=== PATIENT | female | born 1965 | race Hispanic/Latino ===

== ENCOUNTER 2024-07-04 12:20 | Emergency (ER) | payer BC ==
[~2024-07-04] VITALS: Ht 154.9 cm; Wt 84.4 kg
[2024-07-04] MEDS ORDERED: METFORMIN HCL1000 MG (13:07)
[2024-07-04] MEDS ORDERED: ATORVASTATIN CA20 MG PO (13:07)
[2024-07-04] MEDS: LACTATED RINGER'S 1,000 ML INJ ONE (13:15)
[2024-07-04] MEDS: INSULIN REGULAR, HUMAN 100 UNIT/1 ML IV ONE (13:32)
[2024-07-04 14:25] VITALS: PULSE 74; RESP 18; TEMP 97.8; O2SAT 98
== END 2024-07-04 14:29 | disposition home or self-care (01) ==
LOC: FSED 12:26
DX: M25.512 Pain in left shoulder (principal); E11.65 Type 2 diabetes mellitus with hyperglycemia; E86.0 Dehydration; E78.5 Hyperlipidemia, unspecified
CPT/HCPCS: 36415; 80053; 81003; 82553; 82948; 84484; 85025; 96374; 99284; J7121; 93005